=== PATIENT | female | born 1975 | race Caucasian/White ===

== ENCOUNTER 2021-07-11 09:20 | Outpatient (CLI) | payer BC, SELFPAY | END 2021-07-11 09:21 | disposition home or self-care (01) | LOC: ANHBWCAUD 09:22 | PROVIDERS: PCP Nurse Practitioner Family; Visit Provider Nurse Practitioner Family | DX: H91.93 Unspecified hearing loss, bilateral (principal) | CPT/HCPCS: 92557; 92567 ==

== ENCOUNTER 2022-06-14 18:56 | Emergency (ER) | payer BC, SELFPAY ==
[2022-06-14 19:05] VITALS: BP 109/83; PULSE 123; RESP 24; TEMP 36.7; O2SAT 99
--- NOTE | 2022-06-14 19:24 | ED.FEMALEGU ---
HPI - Female Genitourinary General Chief complaint: Urogenital-Female Stated complaint: poss uti Time Seen by Provider: 06/14/22 18:56 Source: patient Mode of arrival: ambulatory Limitations: no limitations History of Present Illness HPI Narrative: Ms. Mendoza is a 47-year-old female patient presenting to the clinic today with complaints of possible urinary tract infection. She reports that she is having burning, frequency, urgency and discomfort over the bladder area x2 days. She reports that she has had some bladder issues going on over the last 2 weeks however it has gotten worse over the last 2 days specifically over the last 4 hours she has taken 2 doses of Azo today. She denies any fever, chills, flank pain, or abdominal pain Related Data Home Medications Medication Instructions Recorded Confirmed hydroxychloroquine 200 mg tablet 200 mg PO DAILY 06/14/22 06/14/22 Allergies Allergy/AdvReac Type Severity Reaction Status Date / Time nitrofurantoin Allergy Rash Verified 06/14/22 19:19 [From [employer]] Review of Systems Review of Systems: Pertinent positives per HPI. Patient denies any fever, chills, rash, headache, visual changes, dizziness, cough, runny nose, sore throat, shortness of breath, chest pain, palpitations, nausea, vomiting, diarrhea, constipation, abdominal pain. PMFSH Comments At the time of my signature, I reviewed and agree with the nursing past medical, surgical, social, and family history. There is no relevant family history pertinent to the patient complaint. Exam Narrative: General: Well-developed, well nourished, in no apparent distress. Head: Normocephalic, atraumatic. Cardio: Regular rate and rhythm, s1 and s2 normal, no murmur appreciated. Resp: Clear to auscultation bilaterally, no rhonchi, rales, wheezing or rubs. Abdomen: Soft, pliable, bowel sounds present in all quadrants, tender to palpation over the suprapubic pain, no organomegly, no CVAT tenderness. Course Course Emergency Course: Portions of this record may have been created with voice recognition software. Level of Care: Express Care Visit Vital Signs Vital signs: Vital Signs Temperature 36.7 C 06/14/22 19:05 Pulse Rate 123 H 06/14/22 19:05 Respiratory Rate 24 H 06/14/22 19:05 Blood Pressure 109/83 06/14/22 19:05 Pulse Oximetry 99 06/14/22 19:05 Oxygen Delivery Room Air 06/14/22 19:05 Temperature 36.7 C 06/14/22 19:05 Pulse Rate 123 H 06/14/22 19:05 Respiratory Rate 24 H 06/14/22 19:05 Blood Pressure 109/83 06/14/22 19:05 Pulse Oximetry 99 06/14/22 19:05 Oxygen Delivery Room Air 06/14/22 19:05 Vital signs reviewed MDM - Female Genitourinary MDM Narrative Medical decision making narrative: At the time of visit patient is resting comfortably on exam table. I suspect the patient has a urinary tract infection. She has taken Azo today so this has skewed the results. Prescription was sent for Bactrim and Pyridium. Supportive measures were discussed with the patient she voiced understanding discharge instructions. We will send urine for culture Differential Diagnosis Differential diagnosis: Likely urinary tract infection and cystitis Lab Data Labs: Urine Glucose Negative Reference Range: Negative Urine Glucose Negative Reference Range: Negative Urine Bilirubin Negative Reference Range: Negative Urine Bilirubin Negative Reference Range: Negative Urine Ketone Negative Reference Range: Negative Urine Ketone Negative Reference Range: Negative Urine Specific [place] 1.005
== END 2022-06-14 19:44 | disposition home or self-care (01) ==
PROVIDERS: Emergency Provider Nurse Practitioner Family; PCP Nurse Practitioner Family
DX: N30.01 Acute cystitis with hematuria (principal)
CPT/HCPCS: 81003; 87077; 87086; 87186; 99213; G0463

== ENCOUNTER 2022-07-23 14:03 | Emergency (ER) | payer BC, SELFPAY ==
--- NOTE | 2022-07-23 14:08 | ED.FEMALEGU ---
HPI - Female Genitourinary General Chief complaint: Urogenital-Female Stated complaint: Urinary Problem Time Seen by Provider: 07/23/22 14:08 Source: patient and RN notes reviewed History of Present Illness HPI Narrative: Patient is a 47-year-old female who presents to the Urgent Care with complaints of a possible UTI. Patient states that she has felt weak for approximately 1 week and is likely due from her autoimmune disorder. Patient states that yesterday she had increased urinary frequency, urgency, painful urination and decreased urinary output. Patient did take azo at 12:00 p.m.. Patient was seen on June 14 with the UTI that grew back E coli. Patient was on Bactrim at that time. Patient does see a urologist on Wednesday. Denies any recent fevers, nausea or vomiting. No other acute complaints. No acute distress noted. Patient aware of the plan care. Some parts of this dictation were generated by voice recognition software and may contain typographical and/or grammatical inaccuracies. Related Data Home Medications Medication Instructions Recorded Confirmed hydroxychloroquine 200 mg tablet 200 mg PO DAILY 06/14/22 07/23/22 Allergies Allergy/AdvReac Type Severity Reaction Status Date / Time nitrofurantoin Allergy Rash Verified 07/23/22 14:18 [From [employer]ro[employer]] Review of Systems Review of Systems: CONSTITUTIONAL: Denies fever, chills, or sweats. EYES: Denies visual changes, redness, or discharge. ENT: Denies rhinorrhea, congestion, sore throat, or otalgia. CARDIOVASCULAR: Denies chest pain, palpitations, or edema. RESPIRATORY: Denies cough or dyspnea. GASTROINTESTINAL: Denies abdominal pain, nausea, vomiting, or diarrhea. GENITOURINARY: Reports of urinary frequency, urgency, decreased urinary output and dysuria SKIN: Denies rash or itching. MUSCULOSKELETAL: Denies back pain, joint pain, or myalgia. NEUROLOGIC: Denies headache, numbness, or weakness. All other systems reviewed are negative, except as documented in HPI. PMFSH Comments At the time of my signature, I reviewed and agree with the nursing past medical, surgical, social, and family history. There is no relevant family history pertinent to the patient complaint. Exam Narrative: GENERAL: This is a well-nourished, well-developed patient. appears fatigued HEAD: normocephalic, atraumatic. EYES: PERRL. Sclera clear/white. Vision is grossly intact. EARS: External ears normal NOSE: External nose normal with no obvious nasal discharge, nares without redness, no rhinorrhea. THROAT: Mucous membranes moist NECK: Neck supple CARDIOVASCULAR: Regular rate and rhythm without murmurs, gallops, or rubs. RESPIRATORY: Clear to auscultation. Breath sounds equal bilaterally. No wheezes, rales, or rhonchi. GASTROINTESTINAL: Abdomen soft, non-tender, nondistended. Bowel sounds are active. SKIN: warm, intact with no suspicious lesions or rash, good texture and turgor. NEURO: awake, alert, and oriented to person, place and time. There were no obvious focal neurologic abnormalities. EXTREMITIES: No clubbing, cyanosis, or edema. BACK: negative bilateral CVA Course Course Level of Care: Express Care Visit Vital Signs Vital signs: Vital Signs Temperature 98.9 F 07/23/22 14:20 Pulse Rate 82 07/23/22 14:20 Respiratory Rate 16 07/23/22 14:20 Blood Pressure 129/72 07/23/22 14:20 Pulse Oximetry 95 07/23/22 14:20 Oxygen Delivery Room Air 07/23/22 14:20 Temperature 98.9 F 07/23/22 14:20 Pulse Rate 82 07/23/22 14:20 Respiratory Rate 16 07/23/22 14:20 Blood Pressure 129/72 07/23/22 14:20 Pulse Oximetry 95 07/23/22 14:20 Oxygen Delivery Room Air 07/23/22 14:20 reviewed MDM - Female Genitourinary MDM Narrative Medical decision making narrative: reviewed lab results with patient. She is aware that urinalysis is indicative of urinary tract infection. Advised the patient to complete the oral antibiotic regimen as p
[2022-07-23 14:20] VITALS: BP 129/72; PULSE 82; RESP 16; TEMP 37.2; O2SAT 95
== END 2022-07-23 14:43 | disposition home or self-care (01) ==
PROVIDERS: Emergency Provider Nurse Practitioner Family; PCP Nurse Practitioner Family
DX: N39.0 Urinary tract infection, site not specified (principal)
CPT/HCPCS: 81003; 87086; 99213; G0463